=== PATIENT | female | born 1985 | race Caucasian/White ===

== ENCOUNTER 2019-11-06 07:40 | Emergency (ER) | payer MEDICAID ==
[~2019-11-06] VITALS: Ht 160 cm; Wt 83.9 kg
[2019-11-06 07:40] VITALS: BP_SYST 130
--- NOTE | 2019-11-06 07:40 | NUR ---
Patient to ER bed 7 to gown for evaluation. Side rails up. Report given to BEKA Rivera.
--- NOTE | 2019-11-06 07:42 | NUR ---
Patient Presented to ER C/O vaginal bleeding. Patient A&Ox4, afebrile, ambulatory to ER, skin pink and warm, pain 1/10, nausea, denies V/D. Patient states she had vaginal spotting yesterday, contacted Dr. Jono Hubbard [facility]. Pt was informed if bleeding continued go to ER. This mornig patient states she has vaginal spotting.
[2019-11-06] MEDS ORDERED: NACL 0.9% 1,000 ML IV ONE (07:50)
--- NOTE | 2019-11-06 07:50 | NUR ---
ER Dr. Kaplan at bedside examining patient.
--- NOTE | 2019-11-06 08:01 | NUR ---
Pelvic exam performed by with Edgar at bedside for entire examination. Patient tolerated procedure well. Patient assisted to position of comfort after examination.
[2019-11-06 08:32] LABS: BASOPHILS % (AUTO) 0.3 % (0.0-2.0); EOSINOPHILS # (AUTO) 0.1 K/uL (0.0-0.4); EOSINOPHILS % (AUTO) 1.3 % (0.0-4.0); HEMATOCRIT 38.9 % (36-48); LYMPHOCYTES # (AUTO) 3.2 K/uL (1.0-5.5); LYMPHOCYTES % (AUTO) 30.7 % (20.5-51.5); MEAN CORPUSCULAR HEMOGLOBIN 29 pg (27-31); MEAN CORPUSCULAR HGB CONC 33 % (32-36); MEAN CORPUSCULAR VOLUME 88 fL (79.0-98.0); MONOCYTES # (AUTO) 0.7 K/uL (0.0-1.0); MONOCYTES % (AUTO) 6.8 % (1.7-9.3); NEUTROPHILS # (AUTO) 6.3 K/uL (1.8-7.7); NEUTROPHILS % (AUTO) 60.9 % (40.0-70.0); PLATELET COUNT (AUTO) 300 K/uL (130-430); RED BLOOD CELL COUNT(AUTO) 4.43 MIL/uL (4.2-6.2); RED CELL DISTRIBUTION WIDTH 13.2 % (9.0-15.0); WHITE BLOOD COUNT (AUTO) 10.3 K/uL (4.8-10.8)
[2019-11-06 08:42] LABS: BILIRUBIN,URINE NEGATIVE (NEGATIVE); BLOOD, URINE 3+ (NEGATIVE); CLARITY/URINE CLEAR (CLEAR); COLOR,URINE YELLOW (YELLOW); GLUCOSE,URINE NEGATIVE (NEGATIVE); KETONES,URINE NEGATIVE (NEGATIVE); LEUKOCYTE ESTERASE ,URINE NEGATIVE (NEGATIVE); NITRITE, URINE NEGATIVE (NEGATIVE); PH,URINE 5.5 (5.0-8.0); PROTEIN URINE NEGATIVE (NEGATIVE); UROBILINOGEN,URINE 0.2 (0.2-1.0)
[2019-11-06 08:52] LABS: CALCIUM 8.2 mg/dL (8.4-11.0); CREATININE 0.61 mg/dL (0.55-1.30); POTASSIUM 3.5 mmol/L (3.5-5.1)
[2019-11-06 08:57] LABS: INR 0.9 (0.8-1.2); PROTHROMBIN TIME 9.4 SECS (9.5-12.5)
[2019-11-06 09:18] LABS: ALBUMIN 2.9 g/dL (3.4-4.8); TOTAL BILIRUBIN 0.2 mg/dL (0.0-1.0)
[2019-11-06 09:41] LABS: BACTERIA,URINE FEW /HPF (None Seen)
[2019-11-06 09:42] LABS: CALCIUM OXALATE CRYSTALS,UR 0-10 /HPF (None Seen)
--- NOTE | 2019-11-06 09:42 | NUR ---
Patient to ER room 7 from radiology
[2019-11-06 11:24] VITALS: BP_SYST 117
--- NOTE | 2019-11-06 11:33 | NUR ---
Patient given written and verbal discharge instructions and verbalizes understanding. ER MD discussed with patient the results and treatment provided. Patient in stable condition. ID arm band removed. Rx of given fortylenol. Patient educated on pain management and to follow up with PMD. Pain Scale 0/10 Opportunity for questions provided and answered. Medication side effect fact sheet provided.
== END 2019-11-06 11:24 | disposition home or self-care (01) ==
LOC: SED 07:40
DX: O20.0 Threatened abortion (principal); Z3A.17 17 weeks gestation of pregnancy
CPT/HCPCS: 36415; 76805; 80053; 81000; 83690; 84702; 85025; 85610; 85730; 86900; 86901; 99284; J7030